=== PATIENT | female | born 1960 | race Two or more races ===

== ENCOUNTER 2025-07-31 10:00 | Day surgery (SDC) | payer OTHER ==
[2025-07-18 08:24] VITALS: BP 135/87
[2025-07-18 08:29] LABS: BASO % 0.8 % (0.1-1.2); EOS # 0.18 (0.04-0.54); EOS % 2.1 % (0.7-7.0); LYMPH # 2.90 (1.18-3.74); LYMPH % 33.3 % (19.3-53.1); MEAN PLATELET VOLUME 10.50 fl (9.4-12.4); MONO # 0.72 (0.24-0.82); MONO % 8.3 % (4.7-12.5); NEUT # 4.80 (1.56-6.13); NEUT % 55.2 % (34.0-71.1); RED CELL DISTRIBUTION WIDTH 13.2 % (11.6-14.4)
[2025-07-18 08:33] LABS: URINE APPEARANCE Clear; URINE BILIRRUBIN Negative (NEGATIVE); URINE COLOR Yellow; URINE KETONE Negative (NEGATIVE); URINE LEUKOCYTE Negative; URINE NITRATE Negative; URINE PROTEIN Negative (NEGATIVE); URINE UROBILINOGEN 0.2 E.U./dl
[2025-07-18 08:38] LABS: URINE BACTERIA 439.0 uL (0.0-1933); URINE EPITHELIAL CELLS 21.6 uL (0.0-38.8); URINE RBC 18.4 uL (0.0-20.8); URINE WBC 20.7 uL (0.0-23.2)
[2025-07-18 08:53] LABS: URINE BLOOD TRACE; URINE CAST 0.14 uL (0.0-1.40); URINE GLUCOSE >=1000 MG/DL (NEGATIVE)
[2025-07-18 08:57] LABS: INR 0.98
[2025-07-18 09:14] LABS: ALT/SGPT 45.0 U/L (12-78); AST/SGOT 23.0 U/L (15-37); BILIRUBIN TOTAL 0.82 mg/dL (0.3-1.2); BUN CREA RATIO 24.0 (7.0-25.0); CREATININE SERUM 0.74 mg/dL (0.55-1.02); GFR 78.76; GLOBULINA 3.4 G/DL (2.4-3.5); GLUCOSE FASTING 114.0 mg/dL (65-100); OSMOLALITY SERUM 286.0 MOSM/KG (275-295)
[~2025-07-31] VITALS: Ht 170.2 cm; Wt 72.6 kg
[~2025-07-31 10:00] MED LIST: ASA81 MG PO; FOLIC ACID0.8 M1; HYDROCHLOROTHIA25 MG PO; JARDIANCE10 MG PO; MAXIMUM D3325 MCG; METFORMIN HCL500 M3 PO; NEURIN S/L; SYNTHROID100 MCG PO; ZESTRIL10 M1 PO
[2025-07-31] MEDS ORDERED: CEFAZOLIN SODIUM 1,000 MG VIAL ONE (10:20)
[2025-07-31] MEDS ORDERED: POVIDONE-IODINE 118 ML BOTT TOP ONE (11:15)
[2025-07-31] MEDS ORDERED: DOXYCYCLINE HY100 M2 PO (12:23)
[2025-07-31] MEDS ORDERED: IBU600 MG PO (12:24)
== END 2025-07-31 16:50 | disposition home or self-care (01) ==
LOC: CIR.AMB 10:00
PROVIDERS: ATTEND Obstetrics & Gynecology
DX: D25.0 Submucous leiomyoma of uterus (principal); N95.0 Postmenopausal bleeding; N84.0 Polyp of corpus uteri

== ENCOUNTER 2025-08-01 23:35 | Emergency (ER) | payer OTHER ==
[~2025-08-01] VITALS: Ht 170.2 cm; Wt 72.6 kg
[~2025-08-01 23:35] MED LIST changes: +DOXYCYCLINE HY100 M2 PO; +IBU600 MG PO
[2025-08-02] MEDS ORDERED: KETOROLAC TROMETHAMINE 15 MG VIAL IM STA (00:15)
[2025-08-02] MEDS ORDERED: ORPHENADRINE CITRATE 30 MG/ML AMPUL IM STA (00:15)
[2025-08-02] MEDS ORDERED: DEXAMETHASONE SODIUM PHOSPHATE 4 MG/ML VIAL IM STA (00:15)
[2025-08-02] MEDS ORDERED: ORPHENADRINE CITRATE 30 MG/ML AMPUL ONE (00:58)
[2025-08-02] MEDS ORDERED: KETOROLAC TROMETHAMINE 30 MG VIAL ONE (00:58)
[2025-08-02] MEDS ORDERED: DEXAMETHASONE SODIUM PHOSPHATE 4 MG/ML VIAL ONE (00:58)
[2025-08-02] MEDS ORDERED: METAXALONE640 MG PO (01:13)
[2025-08-02] MEDS ORDERED: DICLOFENAC POTA50 MG PO (01:13)
== END 2025-08-02 | disposition left against medical advice (07) ==
LOC: ER 23:36
DX: M54.42 Lumbago with sciatica, left side (principal); G57.02 Lesion of sciatic nerve, left lower limb; I10 Essential (primary) hypertension; E03.8 Other specified hypothyroidism